=== PATIENT | male | born 2000 | race Caucasian/White ===

== ENCOUNTER 2023-12-22 04:47 | Emergency (ER) | payer OTHER ==
[~2023-12-22] VITALS: Ht 167.6 cm; Wt 61.2 kg
[2023-12-22 04:54] VITALS: BP 117/60; PULSE 98; RESP 16; TEMP 97.3; O2SAT 99
--- NOTE | 2023-12-22 05:10 | NUR ---
Written and verbal after care instructions given and explained. Patient verbalized understanding. Police with in custody. All questions addressed prior to discharge. Advised to follow up with [employer]D.
== END 2023-12-22 05:10 ==
LOC: MED 04:47
DX: S30.811A Abrasion of abdominal wall, initial encounter (principal); X58.XXXA Exposure to other specified factors, initial encounter; Y93.89 Activity, other specified; Y92.411 Interstate highway as the place of occurrence of the external cause; Y99.8 Other external cause status
CPT/HCPCS: 99283